=== PATIENT | female | born 1965 | race Caucasian/White ===

== ENCOUNTER → 2018-09-11 13:17 | Outpatient (CLI) | payer OTHER, SELFPAY ==
--- NOTE | 2018-09-11 13:19 | DI.MG.S_ITS ---
BILATERAL DIGITAL DIAGNOSTIC MAMMOGRAM 3D/2D: 09/11/2018 CLINICAL: Bilateral breast pain. Comparison is made to exams dated: 06/19/2016 mammogram, 11/19/2012 mammogram - [facility], and 12/29/2008 mammogram - [facility]. The tissue of both breasts is heterogeneously dense. This may lower the sensitivity of mammography. No significant masses, calcifications, or other findings are seen in either breast. Appearance is stable compared to multiple prior studies. IMPRESSION: NEGATIVE There is no abnormality seen in either breast to correspond with the pain in the posterior depth in the upper outer quadrant. There is no mammographic evidence of malignancy. Return to annual mammogram screening schedule is recommended. Findings and recommendations were conveyed to the patient at time of exam. This exam was interpreted at Station ID: [id number]. NOTE: For mammograms, a report in lay terms will be sent to the patient. Approximately 15% of breast malignancies will not be visualized mammographically. In the management of a palpable breast mass, a negative mammogram must not discourage biopsy of a clinically suspicious lesion. Electronically Signed By: Fadia mariano/:09/11/2018 13:57:00 letter sent: Normal Exam ACR BI-RADS Category 1: Negative [id number]
== END ==
PROVIDERS: Family Provider Family Medicine; PCP Family Medicine; Visit Provider Family Medicine
DX: N64.4 Mastodynia (principal)
CPT/HCPCS: 77066; G0279

== ENCOUNTER → 2019-01-23 12:34 | Outpatient (CLI) | payer OTHER, SELFPAY ==
--- NOTE | 2019-01-23 12:36 | DI.RAD.S_ITS ---
PROCEDURE: XR THORACIC SPINE 3V INDICATIONS: neck pain TECHNIQUE: 2 views of the thoracic spine were acquired. COMPARISON: [facility], CT, THORAX WITH CONTRAST, 12/03/2012, 11:54. FINDINGS: Bones: No fractures or dislocations. No suspicious bony lesions. Mild degenerative disc disease at T4-T5, T5-T6 and T6-T7, T7-T8 and T8-T11. 11 pairs of ribs are noted, and appear intact where visualized. Soft tissues: No paravertebral stripe thickening. IMPRESSION: 1. 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 2. Mild degenerative disc disease. Dictated by: Asa Terry M.D. on 01/23/2019 at 15:37 Approved by: Asa Terry M.D. on 01/23/2019 at 15:40
--- NOTE | 2019-01-23 12:36 | DI.RAD.S_ITS ---
PROCEDURE: XR CERVICAL SPINE 2V OR 3V INDICATIONS: neck pain TECHNIQUE: 3 view(s) of the cervical spine were acquired. COMPARISON: [facility], , THORACIC SPINE 3 VIEWS, 12/13/2015, 13:06. [facility], , XR THORACIC SPINE 3V, 01/23/2019, 12:38. FINDINGS: Bones: No fractures or dislocations to the C7 level. The lateral masses of C1 appear intact on the odontoid view. No suspicious bony lesions. There is degenerative disc disease in cervical spine, moderate at C3-C4, mild at C2-C3 and C4-C5. Soft tissues: No prevertebral soft tissue swelling. IMPRESSION: Moderate degenerative disc disease in cervical spine. Dictated by: Asa Terry M.D. on 01/23/2019 at 15:42 Approved by: Asa Terry M.D. on 01/23/2019 at 15:45
== END ==
PROVIDERS: Family Provider Chiropractor; PCP Family Medicine; Visit Provider Family Medicine
DX: M51.34 Other intervertebral disc degeneration, thoracic region (principal); M50.31 Other cervical disc degeneration, high cervical region
CPT/HCPCS: 72040; 72072

== ENCOUNTER → 2019-10-23 15:08 | Outpatient (CLI) | payer OTHER, SELFPAY ==
[2019-10-23 15:36] LABS: Add Manual Diff / Slide Review NO; Basophils Absolute Auto 0 /uL (0-100); Basophils Percent Auto 0.5 % (0-2); Eosinophils Absolute Auto 200 /uL (0-450); Hematocrit 36.5 % (36-46); Lymphocytes Absolute Auto 2900 /uL (1100-4500); Lymphocytes Percent Auto 32.5 % (25-40); Mean Corpuscular HGB Conc 32.8 % (30-36); Mean Corpuscular Hemoglobin 28.9 PG (26-34); Mean Corpuscular Volume 88.2 fL (80-100); Monocytes Absolute Auto 600 /uL (0-900); Monocytes Percent Auto 6.6 % (3-14); Neutrophils Absolute Auto 5200 /uL (1500-7000); Neutrophils Percent Auto 58.4 % (50-75); Platelet Count 253 X10^3/uL (150-400); Red Blood Cell Count 4.14 X10^6/uL (4.0-5.2)
[2019-10-23 16:23] LABS: Alanine Aminotransferase 32 IU/L (<35); Albumin 4.4 g/dL (3.5-5.0); Albumin Globulin Ratio 1.6 (1.0-2.8); Alkaline Phosphatase 86 U/L (38-126); Aspartate Aminotransferase 38 IU/L (14-36); BUN Creatinine Ratio 25.8 (6-22); Bilirubin Total 0.3 mg/dL (0.2-1.3); Blood Urea Nitrogen 16 mg/dL (7-17); Calcium 9.3 mg/dL (8.4-10.2); Carbon Dioxide 26 mmol/L (22-32); Chloride 104 mmol/L (98-107); Cholesterol 197 mg/dL (140-199); Estimated Glomerular Filt Rate > 60.0 mL/min (>60); Globulin 2.7 g/dL (1.7-4.1); Glucose 90 mg/dL (70-100); HDL Cholesterol 53 mg/dL (40-60); HEMOLYSIS < 15 (0-50); LDL Cholesterol Calculated 101 mg/dL (<100); Potassium 4.3 mmol/L (3.4-5.1); Sodium 138 mmol/L (137-145); Total Protein 7.1 g/dL (6.3-8.2); Triglycerides 217 mg/dL (35-150)
[2019-10-23 16:53] LABS: TSH w/ Reflex to FT4 0.61 uIU/mL (0.47-4.68)
[2019-10-24 15:11] LABS: Calcium 9.5 mg/dL (8.7-10.2); Parathyroid Hormone, Intact 51 pg/mL (15-65)
== END ==
PROVIDERS: Family Provider Chiropractor; PCP Family Medicine; Referring Provider Family Medicine; Visit Provider Family Medicine
DX: N91.2 Amenorrhea, unspecified (principal); E83.52 Hypercalcemia
CPT/HCPCS: 36415; 80053; 80061; 82310; 83001; 83002; 83970; 84443; 85025

== ENCOUNTER → 2020-03-29 11:23 | Outpatient (CLI) | payer OTHER, SELFPAY ==
[2020-03-30 11:53] LABS: COVID19 -Nasal RAPID Negative (Negative)
== END ==
PROVIDERS: Family Provider Chiropractor; PCP Family Medicine; Visit Provider Nurse Practitioner
DX: Z01.812 Encounter for preprocedural laboratory examination (principal); Z20.822 Contact with and (suspected) exposure to COVID-19
CPT/HCPCS: 87635